=== PATIENT | male | born 2000 | race Caucasian/White ===

== ENCOUNTER 2025-08-18 10:40 | Outpatient (CLI) | payer OTHER, SELFPAY ==
[2025-08-18 15:43] LABS: Chlamydia DNA Amplified* NOT DETECTED (No Detected); GC DNA Amplified* NOT DETECTED (No Detected)
== END 2025-08-18 10:41 | disposition home or self-care (01) ==
PROVIDERS: PCP Family Medicine; Visit Provider Family Medicine
DX: Z00.00 Encounter for general adult medical examination without abnormal findings (principal); Z11.3 Encounter for screening for infections with a predominantly sexual mode of transmission; Z13.6 Encounter for screening for cardiovascular disorders
CPT/HCPCS: 80053; 80061; 86592; 86703; 86706; 86803; 87340; 87491; 87591